=== PATIENT | male | born 1950 | race Caucasian/White ===

== ENCOUNTER → 2016-08-18 | Outpatient (CLI) | payer OTHER ==
[~2016-08-18] MED LIST: AUGMENTIN875 MG PO; CITALOPRAM HBR40 MG PO; FENOFIBRATE160 MG PO; FINASTERIDE5 MG PO; FISH OIL 1,0001 CAP PO; FLEXERIL10 MG PO; FOLIC ACID PO; IBUPROFEN PO; LISINOPRIL10 MG PO; LORTAB 5-325 M1 EACH PO; LORTAB 5/500 TA1 TA1 PO; MOBIC PO; MOTRIN600 M2 PO; MULTI-DAY1 TAB PO; NIACIN; PRAVACHOL20 MG PO; PRAVASTATIN SOD80 MG PO; ROBAXIN500 MG PO; SKELAXIN PO; TYLOX 5/500 CAP1 CAP PO; ZANTAC PO; [UNRECOGNIZED DRUG - REMARK] SQ
--- NOTE | ~2016-08-18 | US11 ---
[facility] A Service of [facility] RADIOLOGY TEXT RESULTS PATIENT: ARTEM RUSSELL LOCATION: [facility] : 50 UNIT #: [id number] AGE: [address]: BEATRICE GARCIA MD (INT MED) SEX: M ORDER DR: [id number] [address] [address] [id number] O MR#: [id number] Acc #: [id number] NAME: ARTEM RUSSELL : 1950 SEX: M STUDY DATE/TIME: 08/18/2016 8:36 UNIT: [facility] ROOM: STUDY DESCRIPTION: US Aorta Duplex Complete Attending Physician: Beatrice Garcia M.D. Referring Physician: Beatrice Garcia M.D. Ordering Physician: Beatrice Garcia M.D. Primary Care Physician: Beatrice Garcia M.D. MEDICAL IMAGING REPORT This report is preliminary unless electronic signature is present. EXAM Ultrasound of the aorta date of examination 08/18/2016 HISTORY Abdominal aortic aneurysm. FINDINGS High resolution B-mode imaging and color flow Doppler analysis was performed of the abdominal aorta and iliac arteries in lateral views. The abdominal aorta measures 2.7 cm in greatest diameter in its proximal segment, 2.5 in greatest diameter in its mid segment, and 2.9 cm in greatest diameter in its distal segment. The right common iliac artery measures about 15 mm in diameter. The left common iliac artery measures about 21 mm in diameter. There is no focal elevation of Doppler velocities at any level to suggest significant stenosis. IMPRESSION Ectasia of the distal abdominal aorta which measures 2.9 cm in greatest diameter. These results are not significantly changed compared to the previous study performed on 07/18/2015 when the patient was identified with an aneurysm measuring 3 cm in diameter. Dictated by... Ran Campbell M.D. THIS IS AN ELECTRONICALLY VERIFIED REPORT Ran Campbell M.D. at 08/23/2016 8:16 AM ALFA/georgina [facility] A Service of [facility] & [facility] RADIOLOGY TEXT RESULTS PATIENT: ARTEM RUSSELL LOCATION: [facility] : 50 UNIT #: [id number] AGE: [address]: BEATRICE GARCAI MD (INT MED) SEX: M ORDER DR: TD: 08/18/2016 13:59 JOB #: [id number] MEDICAL IMAGING REPORT Page 1 of 1
== END | disposition home or self-care (01) ==
LOC: SGUS 07:58
DX: I71.4 Abdominal aortic aneurysm, without rupture (principal)
CPT/HCPCS: 93978

== ENCOUNTER 2016-08-22 12:46 | Emergency (ER) | payer OTHER ==
--- NOTE | ~2016-08-22 | CT71 ---
[facility] A Service [facility] RADIOLOGY TEXT RESULTS PATIENT: ARTEM RUSSELL LOCATION: [facility] : 50 UNIT #: [id number] AGE: [address]: Stan Benson MD SEX: M ORDER DR: [id number] [place] [id number] E MR#: [id number] Acc #: [id number] NAME: ARTEM RUSSELL : 1950 SEX: M STUDY DATE/TIME: 08/22/2016 13:32 UNIT: [facility] ROOM: STUDY DESCRIPTION: CT Head Wo Contrast Attending Physician: Stan Benson M.D. Ordering Physician: Stan Benson M.D. Primary Care Physician: Josh Garcia M.D. MEDICAL IMAGING REPORT This report is preliminary unless electronic signature is present. EXAM CT head INDICATIONS Headache after yard work. Hypertension. TECHNIQUE CT of the head without contrast. This CT exam was performed with one or more of the following radiation dose reduction techniques: Automatic exposure control, adjustment of mA and/or kV according to patient size, and iterative reconstruction. COMPARISON CT head dated 01/25/2015. FINDINGS Axial noncontrast images were obtained from the skull base to the vertex. Ventricular size and configuration are normal. There is no evidence of acute infarct or hemorrhage. There are no extraaxial fluid collections. No mass lesion or mass effect is seen. There are no skull fractures. There is a right mastoid effusion, unchanged from the prior study. There is some mild mucosal thickening in the left maxillary sinus. There is generalized atelectasis of the left maxillary sinus as well as some hyperostosis of the antral wall, suggesting chronic sinusitis. IMPRESSION Negative head CT. Dictated by... [facility] A Service of [facility] RADIOLOGY TEXT RESULTS PATIENT: ARTEM RUSSELL LOCATION: [facility] : 50 UNIT #: [id number] AGE: [address]: Stan Benson MD SEX: M ORDER DR: Mauricio Mckinney M.D. THIS IS AN ELECTRONICALLY VERIFIED REPORT Mauricio Mckinney M.D. at 08/23/2016 8:06 AM RPC/jeff TD: 08/22/2016 21:35 JOB #: [id number] MEDICAL IMAGING REPORT Page 1 of 1
[~2016-08-22 12:46] MED LIST changes: -NIACIN
[2016-08-22] MEDS ORDERED: NIACIN (12:57)
[2016-08-22 13:56] LABS: BASOPHIL# 0.1 X10e3 (0-0.3); BASOPHIL% 1.4 % (0-2.5); EOSINOPHIL# 0.3 X10e3 (0-0.7); EOSINOPHIL% 3.9 % (0.0-7.0); HEMATOCRIT 40.7 % (38.0-50.0); HEMOGLOBIN 13.5 gm/dL (13.0-16.0); LYMPHOCYTE# 1.9 X10e3 (1.0-3.5); LYMPHOCYTE% 29.3 % (17.0-45.0); MEAN CELL VOLUME 94.2 FL (83-96); MEAN CORPUSCULAR HEMOGLOBIN 31.3 PG (28-34); MEAN CORPUSCULAR HGB CONC 33.2 g/dL (30-36); MEAN PLATELET VOLUME 8.3 FL (6.5-11.5); MONOCYTE# 0.7 X10e3 (0-1.0); MONOCYTE% 10.9 % (3.0-12.0); NEUTROPHIL# 3.6 X10e3 (1.5-7.1); NEUTROPHIL% 54.5 % (40-75); PLATELET COUNT 264 X10e3 (140-420); RED BLOOD COUNT 4.32 X10e (3.90-5.60); RED CELL DISTRIBUTION WIDTH 14.7 % (11.0-15.5); WHITE BLOOD COUNT 6.7 X10e3 (4.0-10.5)
[2016-08-22 13:59] LABS: DIFF IND NO
[2016-08-22 14:14] LABS: CALCIUM SERUM 8.8 mg/dL (8.4-10.2); CREATININE SERUM 1.3 mg/dL (0.6-1.4); GLOM FILT RATE Estimated 56.9 mL/min (>60); POTASSIUM 3.6 mmol/L (3.5-5.1)
[2016-08-22 14:14] LABS: POC - CKMB 1.8 ng/mL (0.0-7.9); POC - TROPONIN <0.05 ng/mL (<=0.05)
== END 2016-08-22 15:23 | disposition home or self-care (01) ==
LOC: SED 12:46
PROVIDERS: Emergency Medicine
DX: G44.209 Tension-type headache, unspecified, not intractable (principal); Z90.5 Acquired absence of kidney; Z85.528 Personal history of other malignant neoplasm of kidney; Z79.899 Other long term (current) drug therapy
CPT/HCPCS: 36415; 70450; 80048; 82553; 84484; 85025; 96361; 96374; 96375; 99284; J1100; J1885; J2765

== ENCOUNTER → 2016-09-27 | Outpatient (CLI) | payer OTHER ==
[~2016-09-27] MED LIST changes: +NIACIN
--- NOTE | ~2016-09-27 | CR63 ---
[facility] A Service of [facility] RADIOLOGY TEXT RESULTS PATIENT: ARTEM RUSSELL LOCATION: [facility] : 50 UNIT #: [id number] AGE: [address]: Lewis Matute MD SEX: M ORDER DR: [id number] [place] [id number] O MR#: [id number] Acc #: [id number] NAME: ARTEM RUSSELL : 1950 SEX: M STUDY DATE/TIME: 09/27/2016 9:42 UNIT: [facility] ROOM: STUDY DESCRIPTION: CR Chest 2 View Attending Physician: Lewis Matute M.D. Referring Physician: Lewis Matute M.D. Ordering Physician: Lewis Matute M.D. Primary Care Physician: Josh Garcia M.D. MEDICAL IMAGING REPORT This report is preliminary unless electronic signature is present. EXAM Chest x-ray, 09/27. INDICATION Yearly followup for renal cell carcinoma. Observation for malignant neoplasm. No current complaints. History of hypertension. FINDINGS Two views of the chest are compared with 10/03/2015. There is mild cardiomegaly. Lungs are clear. Vascularity is normal. The bones are unremarkable. IMPRESSION No evidence of metastatic disease. No acute findings in the chest. Dictated by... Santosh Boyd Jr., M.D. THIS IS AN ELECTRONICALLY VERIFIED REPORT Santosh Boyd Jr., M.D. at 09/27/2016 3:48 PM UMA/karan TD: 09/27/2016 15:27 JOB #: [id number] MEDICAL IMAGING REPORT Page 1 of 1
[2016-09-27 10:09] LABS: BILIRUBIN,TOTAL 0.5 mg/dL (0.2-2.0); BUN/CREATININE RATIO 12.5; CALCIUM SERUM 9.1 mg/dL (8.4-10.2); CREATININE SERUM 1.2 mg/dL (0.6-1.4); GLOM FILT RATE Estimated 62.7 mL/min (>60); POTASSIUM 3.7 mmol/L (3.5-5.1); PROTEIN TOTAL SERUM 7.1 g/dL (6.0-8.3)
== END | disposition home or self-care (01) ==
LOC: SLAB 09:22
PROVIDERS: Urology
DX: C64.2 Malignant neoplasm of left kidney, except renal pelvis (principal)
CPT/HCPCS: 36415; 71020; 80053